=== PATIENT | female | born 1995 | race Caucasian/White ===

== ENCOUNTER 2017-03-31 16:27 | Emergency (ER) | payer SELFPAY ==
[~2017-03-31] VITALS: Ht 167.6 cm; Wt 90.7 kg
[~2017-03-31 16:27] MED LIST: AUGMENTIN 875-1 EACH PO; IBUPROFEN600 MG PO; KEFLEX500 MG PO; OFLOXACIN10 ML AS; ORTHO TRI-CYCL1 EAC1 PO; POTASSIUM CHLO20 ME1 PO; PRENATAL MULTI1 EACH PO
[2017-03-31] MEDS ORDERED: METHYLPREDNISOLO4 M1 PO (17:08)
[2017-03-31] MEDS ORDERED: BACLOFEN10 MG PO (17:08)
== END 2017-03-31 17:29 | disposition home or self-care (01) ==
LOC: ED 16:27
DX: S39.012A Strain of muscle, fascia and tendon of lower back, initial encounter (principal); F17.200 Nicotine dependence, unspecified, uncomplicated; X50.9XXA Other and unspecified overexertion or strenuous movements or postures, initial encounter; Y92.69 Other specified industrial and construction area as the place of occurrence of the external cause; Y99.0 Civilian activity done for income or pay
CPT/HCPCS: 99283

== ENCOUNTER 2017-07-07 10:30 | Emergency (ER) | payer SELFPAY ==
[~2017-07-07] VITALS: Ht 167.6 cm; Wt 90.7 kg
[~2017-07-07 10:30] MED LIST changes: +BACLOFEN10 MG PO; +METHYLPREDNISOLO4 M1 PO
== END 2017-07-07 10:43 | disposition home or self-care (01) ==
LOC: ED 10:30
DX: M79.642 Pain in left hand (principal); W06.XXXA Fall from bed, initial encounter

== ENCOUNTER 2017-10-21 07:13 | Emergency (ER) | payer OTHER ==
[~2017-10-21] VITALS: Ht 167.6 cm; Wt 81.7 kg
== END 2017-10-21 07:40 | disposition home or self-care (01) ==
LOC: ED 07:13
DX: J02.9 Acute pharyngitis, unspecified (principal); R05 Cough

== ENCOUNTER 2020-12-08 15:42 | Emergency (ER) | payer SELFPAY ==
[~2020-12-08] VITALS: Ht 167.6 cm; Wt 81.7 kg
--- OUTSIDE RECORDS SUMMARY | 2020-12-08 15:50 | XMS ---
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 Meka has no Care Guidelines for this patient. [place] VISIT COUNT (12 MO.) 1 ELISA [place] TOTAL 1 NOTE: Visits indicate total known visits. ED/UCC VISIT TRACKING (12 MO.) 12/08/2020 15:42 [facility] [place] TYPE: Emergency COMPLAINT: - L LEG SWELLING INPATIENT VISIT TRACKING (12 MO.) No inpatient visits to display in this time frame [email or web address]
[2020-12-08] MEDS ORDERED: CEPHALEXIN500 MG PO (16:26)
== END 2020-12-08 16:46 | disposition home or self-care (01) ==
LOC: ED 15:42
DX: L03.116 Cellulitis of left lower limb (principal); F17.200 Nicotine dependence, unspecified, uncomplicated
CPT/HCPCS: 99283